=== PATIENT | female | born 1950 | race Caucasian/White ===

== ENCOUNTER 2017-10-24 23:51 | Emergency (ER) | payer MEDICARE ==
[~2017-10-24] VITALS: Ht 165.1 cm; Wt 93.8 kg
[~2017-10-24 23:51] MED LIST: TOVIAZ8 MG PO; TRAMADOL 50 MG50 MG PO; VICODIN 5-5001 EACH PO
[2017-10-25 00:35] LABS: ABSOLUTE BASOPHILS 0.1 thou/uL (0.0-0.2); ABSOLUTE EOSINOPHILS 0.2 thou/uL (0.0-0.7); ABSOLUTE LYMPHOCYTES 3.7 thou/uL (0.8-5.3); ABSOLUTE MONOCYTES 1.4 thou/uL (0.0-1.2); ABSOLUTE NEUTROPHILS 7.2 thou/uL (1.6-8.1); BASOPHILS 0.6 %; EOSINOPHILS 1.6 %; HEMATOCRIT 40.7 % (37.0-47.0); HEMOGLOBIN 13.3 gm/dL (12.0-15.0); LYMPHOCYTES 29.5 %; MCH 29.2 pg (26.0-34.0); MCHC 32.6 g/dL (28.0-37.0); MCV 89.7 fL (80.0-100.0); MONOCYTES 10.8 %; MPV 7.1 fl. (7.2-11.1); NUCLEATED RBCS 0 /100WBC; PLATELET COUNT* 273 thou/uL (150-400); POLYS 57.5 %; RBC 4.54 mil/uL (4.20-5.00); WBC 12.5 thou/uL (4.0-11.0)
[2017-10-25 00:41] LABS: CALCIUM 9.3 mg/dL (8.5-10.1); CREATININE 0.9 mg/dL (0.6-1.3); POTASSIUM 3.8 mmol/L (3.5-5.1)
[2017-10-25 00:46] LABS: ALBUMIN 3.5 g/dL (3.4-5.0); TOTAL BILIRUBIN 0.5 mg/dL (<0.1-1.0); TOTAL PROTEIN 7.7 g/dL (6.4-8.2)
[2017-10-25 00:55] LABS: URINE BILIRUBIN NEGATIVE (Negative); URINE BLOOD TRACE (Negative); URINE CLARITY CLEAR; URINE COLOR YELLOW; URINE GLUCOSE-RANDOM NEGATIVE (Negative); URINE KETONES NEGATIVE (Negative); URINE LEUKOCYTES-REFLEX NEGATIVE (Negative); URINE NITRITE-REFLEX NEGATIVE (Negative); URINE PROTEIN NEGATIVE (Negative); URINE UROBILINOGEN 0.2 E.U./dl (0.2-1.0)
[2017-10-25] MEDS ORDERED: PERCOCET PO (02:19)
[2017-10-25 02:27] VITALS: BP 161/79
== END 2017-10-25 02:28 | disposition home or self-care (01) ==
LOC: M.ERS 23:51
PROVIDERS: Emergency Medicine
DX: M54.5 Low back pain (principal); G47.30 Sleep apnea, unspecified

== ENCOUNTER → 2018-04-08 | Outpatient (CLI) | payer MEDICARE, OTHER ==
[~2018-04-08] MED LIST changes: +PERCOCET PO
--- NOTE | 2018-04-09 22:52 | SLEEP ---
[place] [address] SLEEP STUDY REPORT Name: IKER CARRASQUILLO Room: [facility]#: [id number] Admission: 04/08/18 Attend Phys: Katherine Dunaway MD Discharge: Date of : 52 Report #: [id number] THIS REPORT FOR: //name// CC: Katherine Dunaway MD This study has been reviewed in its entirety by a board certified sleep specialist DATE OF SERVICE: 04/08/2018 SLEEP STUDY ATTENDING PHYSICIAN: Katherine Dunaway MD. The patient is 67 years old who weighs 199 pounds and is 65 inches tall with a BMI of 33.1. The patient's Cyclone score was 10. The patient underwent a diagnostic sleep study at [facility]. During the night study, the patient spent 399 minutes in bed and slept for 258 minutes with a sleep efficiency of 65%. Sleep latency was 14.4 minutes with a REM latency of 39.4 minutes, which was short. Overall, sleep architecture showed normal stage I sleep. Slightly reduced stage II sleep, increased N3 sleep and increased REM sleep, which was 33% of the total sleep time. During the night study, the patient had total of 10 apneas; 7 obstructive and 3 central and no mixed apneas. There were 29 hypopneas. The patient's apnea hypopnea index was 9.1 per hour with a REM index of 9.7 per hour and a supine index of 9 per hour. EKG monitoring revealed average heart rate of 78 beats per minute. No sustained arrhythmias observed. Maximum heart rate was 99 beats per minute. PLMS was seen at the index of 102 per hour and 15 per hour caused EEG arousals. Nocturnal oximetry study revealed an average oxygen saturation of 95% with a lowest of 89%. No clinically significant desaturations of less than 89% were observed. Due to low AHI, the patient did not meet the split night criteria for CPAP initiation. IMPRESSION: 1. Mild sleep apnea-hypopnea syndrome at an AHI of 9.1 per hour. 2. No clinically significant nocturnal hypoxia. 3. Severe [place] [address] SLEEP STUDY REPORT Name: IKER CARRASQUILLO Room: [facility]#: [id number] Admission: 04/08/18 Attend Phys: Katherine Dunaway MD Discharge: Date of : 52 Report #: [id number] 4. Reduced sleep efficiency of 65%, resulting from sleep maintenance insomnia. RECOMMENDATIONS: 1. The patient did not meet the split night criteria for CPAP initiation due to low AHI. The patient is clinically symptomatic with an Cyclone score of 10. Patient's sleep apnea with either oral appliance or a trial of CPAP titration. 2. Weight loss is strongly advised. 3. Avoid BUFFERER depressants. 4. Cautioned regarding driving until patient's hypersomnia is resolved. 5. The patient has severe PLMS. The patient should also be further evaluated for symptoms of restless legs during the day and if present, it can be treated with dopaminergic agonist agents. 6. The patient's insomnia should also be further evaluated and treated according to the etiology, if it is a chronic condition. <ELECTRONICALLY SIGNED> By: Thom Rivera MD 04/09/18 2252 [id number] [id number] Rivera MD /nt
== END ==
LOC: M.SLEEPLAB 03-30 20:00
DX: G47.39 Other sleep apnea (principal); G47.61 Periodic limb movement disorder; R53.83 Other fatigue

== ENCOUNTER → 2018-04-27 | Outpatient (CLI) | payer MEDICARE, OTHER | LOC: M.CT 11:00 | DX: K76.0 Fatty (change of) liver, not elsewhere classified (principal); M47.895 Other spondylosis, thoracolumbar region; K44.9 Diaphragmatic hernia without obstruction or gangrene; K57.30 Diverticulosis of large intestine without perforation or abscess without bleeding; R91.1 Solitary pulmonary nodule; Z98.51 Tubal ligation status; Z96.643 Presence of artificial hip joint, bilateral ==

== ENCOUNTER → 2018-05-05 | Outpatient (CLI) | payer MEDICARE, OTHER ==
--- NOTE | 2018-05-06 11:01 | SLEEP ---
[address] [address] SLEEP STUDY REPORT Name: IKER CARRASQUILLO Room: [facility]#: [id number] Admission: 05/05/18 Attend Phys: Eulalio Dunaway MD Discharge: Date of : 52 Report #: [id number] THIS REPORT FOR: //name// CC: EULALIO Dunaway This study has been reviewed in its entirety by a board certified sleep specialist DATE OF SERVICE: 05/05/2018 ATTENDING PHYSICIAN: Dr. Eulalio Dunaway. The patient is 67 years old who weighs 200 pounds and is 55 inches tall. The patient had a previous sleep study and was found to have ROBEL and an AHI of 9.1 per hour. The patient also had severe PLMs. The patient was referred for a CPAP titration study as she was clinically symptomatic. During the night study, the patient spent 354 minutes in bed and slept for 310 minutes with a sleep efficiency of 88%. Sleep latency was 11.8 minutes with a REM latency of 46.3 minutes. Overall, sleep architecture showed normal stage 1 sleep, reduced stage 2 sleep, increased slow wave sleep, which was 45% of total sleep time and normal REM sleep. EKG monitoring revealed an average heart rate of 80 beats per minute with a maximum of 103 beats per minute. No sustained arrhythmias were observed. PLMS was seen as an index of 56 per hour and 6 per hour caused EEG arousals. The patient was started on CPAP at a pressure of 5 cm of water and titrated up 15 cm water. At the final pressure, the patient slept for 18.8 minutes. The patient had REM as well as supine sleep. The patient's AHI was reduced to 0 per hour and oxygen saturation remained above 97%. IMPRESSION: 1. Sleep apnea diagnosed by previous sleep study. 2. Severe PLMS. RECOMMENDATIONS: 1. CPAP at 15 cm water completely eliminated the patient's sleep apnea and should be used on a nightly basis. 2. Follow up in 4-6 weeks to assess compliance with CPAP and to document clinical improvement. 3. Weight loss is strongly advised. 4. Avoid [employer] depressants. 5. Cautioned regarding driving until symptoms [place] [address] SLEEP STUDY REPORT Name: FOREIGNIKER L Room: [facility]#: [id number] Admission: 05/05/18 Attend Phys: Eulalio Dunaway MD Discharge: Date of : 52 Report #: [id number] use of CPAP. 6. The patient should also be further evaluated for symptoms of restless legs during the day and if present, it can be treated with dopaminergic agonist agents. <ELECTRONICALLY SIGNED> By: Thom Rivera MD 05/06/18 1101 0945 [id number] Rivera MD /ankush
== END ==
LOC: M.SLEEPLAB 21:00
DX: G47.30 Sleep apnea, unspecified (principal); G47.61 Periodic limb movement disorder

== ENCOUNTER 2018-12-29 11:05 | Emergency (ER) | payer MEDICARE, OTHER ==
[~2018-12-29] VITALS: Ht 165.1 cm; Wt 90.7 kg
[2018-12-29] MEDS ORDERED: ZANTAC 150MG T150 MG PO (11:16)
[2018-12-29] MEDS ORDERED: HYDROCHLOROTHIA25 M2 PO (11:17)
[2018-12-29] MEDS ORDERED: SINGULAIR 10 MG10 M1 PO (11:17)
[2018-12-29] MEDS ORDERED: ONDANSETRON ODT4 MG PO (11:17)
[2018-12-29 11:57] LABS: ABSOLUTE EOSINOPHILS 0.2 thou/uL (0.0-0.7); ABSOLUTE LYMPHOCYTES 2.8 thou/uL (0.8-5.3); ABSOLUTE MONOCYTES 1.1 thou/uL (0.0-1.2); ABSOLUTE NEUTROPHILS 5.4 thou/uL (1.6-8.1); BASOPHILS 0.4 %; EOSINOPHILS 1.9 %; HEMATOCRIT 41.6 % (37.0-47.0); HEMOGLOBIN 13.8 gm/dL (12.0-15.0); LYMPHOCYTES 29.5 %; MCHC 33.3 g/dL (28.0-37.0); MCV 90.2 fL (80.0-100.0); MONOCYTES 11.2 %; MPV 7.4 fl. (7.2-11.1); NUCLEATED RBCS 0 /100WBC; PLATELET COUNT* 236 thou/uL (150-400); RBC 4.61 mil/uL (4.20-5.00); RDW-CV 14.1 % (10.5-14.5); WBC 9.5 thou/uL (4.0-11.0)
[2018-12-29 12:09] LABS: CALCIUM 9.1 mg/dL (8.5-10.1); CREATININE 0.8 mg/dL (0.6-1.3)
[2018-12-29 12:14] LABS: ALBUMIN 3.3 g/dL (3.4-5.0); TOTAL PROTEIN 7.1 g/dL (6.4-8.2); URIC ACID* 6.2 mg/dL (2.6-7.2)
[2018-12-29 12:38] LABS: TOTAL BILIRUBIN 0.8 mg/dL (<0.1-1.0)
[2018-12-29] MEDS ORDERED: KEFLEX500 M1 PO (12:45)
[2018-12-29] MEDS ORDERED: BACTRIM DS TAB1 EACH PO (12:45)
[2018-12-29 13:00] VITALS: BP 142/74
== END 2018-12-29 13:01 | disposition home or self-care (01) ==
LOC: M.ERS 11:05
PROVIDERS: Nurse Practitioner Family
DX: L03.116 Cellulitis of left lower limb (principal); M21.619 Bunion of unspecified foot; I10 Essential (primary) hypertension; K21.9 Gastro-esophageal reflux disease without esophagitis; G47.30 Sleep apnea, unspecified; Z98.51 Tubal ligation status

== ENCOUNTER 2019-05-31 20:49 | Emergency (ER) | payer MEDICARE, OTHER ==
[~2019-05-31] VITALS: Ht 165.1 cm; Wt 90.7 kg
[~2019-05-31 20:49] MED LIST changes: +BACTRIM DS TAB1 EACH PO; +HYDROCHLOROTHIA25 M2 PO; +KEFLEX500 M1 PO; +ONDANSETRON ODT4 MG PO; +SINGULAIR 10 MG10 M1 PO; +ZANTAC 150MG T150 MG PO
[2019-05-31 21:01] VITALS: BP 146/69
[2019-05-31] MEDS ORDERED: FAMOTIDINE 20 M20 MG PO (21:05)
[2019-05-31] MEDS ORDERED: PROTONIX40 M2 PO (21:05)
[2019-05-31] MEDS ORDERED: NORCO 5-325 TA1 EAC1 PO (21:26)
[2019-05-31] MEDS ORDERED: PREDNISONE 20 M20 M1 PO (21:26)
== END 2019-05-31 21:32 | disposition home or self-care (01) ==
LOC: M.ERS 20:49
DX: M10.072 Idiopathic gout, left ankle and foot (principal); I10 Essential (primary) hypertension; K21.9 Gastro-esophageal reflux disease without esophagitis; G47.30 Sleep apnea, unspecified; Z98.51 Tubal ligation status; Z79.899 Other long term (current) drug therapy

== ENCOUNTER 2020-03-13 23:26 | Emergency (ER) | payer MEDICARE, OTHER ==
[~2020-03-13] VITALS: Ht 165.1 cm; Wt 90.7 kg
[~2020-03-13 23:26] MED LIST changes: +FAMOTIDINE 20 M20 MG PO; +NORCO 5-325 TA1 EAC1 PO; +PREDNISONE 20 M20 M1 PO; +PROTONIX40 M2 PO
[2020-03-14] MEDS ORDERED: NORCO 5-325 TA1 EAC2 PO (00:48)
[2020-03-14 01:22] VITALS: BP 148/61
--- NOTE | 2020-03-14 15:56 | EKG ---
[place] [address] ELECTROCARDIOGRAM REPORT Name: IKER CARRASQUILLO Room: [facility]#: [id number] Admission: 03/13/20 Attend Phys: Discharge: 03/14/20 Date of : 52 Date of Service: 03/13/20 2356 Report #: [id number] THIS REPORT FOR: //name// [facility] ED Test Date: 2020-03-13 Test Time: 23:56:31 Pat Name: IKER CARRASQUILLO Department: Room: Gender: F Thread Marker: : 1950 Requested By: Hesham Paiz Order Number: [id number] MD: Delio Ochoa Measurements Intervals [place] Rate: 71 P: 65 CT: 222 QRS: 44 QRSD: 79 T: 50 QT: 416 QTc: 453 Interpretive Statements Sinus rhythm Prolonged CT interval Borderline low voltage, extremity leads Compared to ECG 04/11/2010 16:32:12 First degree AV block now present Sinus tachycardia no longer present Electronically Signed On 03-14-2020 15:56:07 CDT by Delio Ochoa [email or web address] <ELECTRONICALLY SIGNED> By: Delio Ochoa MD, FACC 03/14/20 1556 2356 2356 Delio Ochoa MD, [facility] /EPI
== END 2020-03-14 01:22 | disposition home or self-care (01) ==
LOC: M.ERS 23:26
DX: M25.512 Pain in left shoulder (principal); K21.9 Gastro-esophageal reflux disease without esophagitis; G47.30 Sleep apnea, unspecified; I10 Essential (primary) hypertension; Z98.51 Tubal ligation status; Z96.643 Presence of artificial hip joint, bilateral

== ENCOUNTER 2021-01-26 04:22 | Emergency (ER) | payer MEDICARE, OTHER ==
[~2021-01-26] VITALS: Ht 165.1 cm; Wt 90.7 kg
[~2021-01-26 04:22] MED LIST changes: +NORCO 5-325 TA1 EAC2 PO
[2021-01-26 05:01] VITALS: BP 149/77
[2021-01-26] MEDS ORDERED: TRIAMTERENE/HCT1 CA1 PO (05:06)
[2021-01-26] MEDS ORDERED: CRESTOR10 MG PO (05:07)
[2021-01-26] MEDS ORDERED: INDOMETHACIN 2525 MG PO (06:55)
[2021-01-26] MEDS ORDERED: HYDROCODON-ACE1 EAC8 PO (06:55)
[2021-01-26] MEDS ORDERED: DOXYCYCLINE 10100 MG PO (06:55)
== END 2021-01-26 07:08 | disposition home or self-care (01) ==
LOC: M.ERS 04:22
DX: L03.116 Cellulitis of left lower limb (principal); I10 Essential (primary) hypertension; K21.9 Gastro-esophageal reflux disease without esophagitis; Z98.890 Other specified postprocedural states; Z79.899 Other long term (current) drug therapy; Z91.09 Other allergy status, other than to drugs and biological substances

== ENCOUNTER 2021-04-01 16:30 | Emergency (ER) | payer MEDICARE, OTHER ==
[~2021-04-01] VITALS: Ht 165.1 cm; Wt 88.9 kg
[~2021-04-01 16:30] MED LIST changes: +CRESTOR10 MG PO; +DOXYCYCLINE 10100 MG PO; +HYDROCODON-ACE1 EAC8 PO; +INDOMETHACIN 2525 MG PO; +TRIAMTERENE/HCT1 CA1 PO
[2021-04-01] MEDS ORDERED: FLEXERIL PO (16:51)
[2021-04-01] MEDS ORDERED: TRAMADOL 50 MG50 MG PO (16:51)
[2021-04-01] MEDS ORDERED: METHYLPREDNISOL32 MG PO (16:51)
[2021-04-01 17:19] VITALS: BP 189/82
[2021-04-01 17:26] LABS: URINE BILIRUBIN NEGATIVE (Negative); URINE BLOOD NEGATIVE (Negative); URINE CLARITY CLEAR; URINE COLOR YELLOW; URINE GLUCOSE-RANDOM NEGATIVE (Negative); URINE KETONES NEGATIVE (Negative); URINE LEUKOCYTES-REFLEX NEGATIVE (Negative); URINE NITRITE-REFLEX NEGATIVE (Negative); URINE PROTEIN NEGATIVE (Negative); URINE SPECIFIC GRAVITY 1.025 (1.005-1.030); URINE UROBILINOGEN 0.2 E.U./dl (0.2-1.0)
== END 2021-04-01 17:20 | disposition home or self-care (01) ==
LOC: M.ERS 16:30
PROVIDERS: Nurse Practitioner Psychiatric/Mental Health
DX: G89.29 Other chronic pain (principal); M54.50 Low back pain, unspecified; I10 Essential (primary) hypertension; K21.9 Gastro-esophageal reflux disease without esophagitis; Z98.51 Tubal ligation status; Z98.890 Other specified postprocedural states; Z79.899 Other long term (current) drug therapy; Z79.2 Long term (current) use of antibiotics; Z91.048 Other nonmedicinal substance allergy status